=== PATIENT | female | born 1990 | race Asian ===

== ENCOUNTER 2020-05-17 09:55 | Outpatient (CLI) | payer OTHER ==
--- NOTE | 2020-05-17 12:10 | Ultrasound Report ---
PROCEDURE: OB Detailed Eval INDICATIONS: SUPERVISION OF OUTSIDE/PRIOR DATING DATA: Last menstrual period (LMP): 11/17/2019. LMP-based estimated date of delivery (MELINDA): 08/23/2020. First dating scan (date and location): 02/08/2020. Estimated date of delivery (MELINDA) from first dating scan: 09/04/2020. TECHNIQUE: Real-time scanning was performed of the fetus, with image documentation and biometric measurements. Endovaginal scanning: Performed COMPARISON: Report from 02/08/2020 ultrasound. FINDINGS: General: A single living intrauterine gestation is present. Presentation: Variable/transverse Placenta: Placental position is posterior, without previa. Amniotic fluid index: 15.9 cm, normal range 5-24 cm heart rate: 158 beats per minute. Maternal cervical canal: Closed and 4.0 cm long; normal length is 2.5 cm or more. biometrics: Biparietal diameter: 23 weeks 5 days Head circumference: 23 weeks 5 days Abdominal circumference: 24 weeks 1 day Femur length: 22 weeks 5 days Estimated gestational age from initial scan: 24 weeks 2 days. Composite gestational age from present scan: 23 weeks 4 days Estimated weight and percentile: 603 g; 14th percentile for gestational age Measurement variability in biometric dating: +/- 10 days from 12-20 weeks gestation, +/- 2 weeks from 20-30 weeks gestation, +/- 3 weeks at 30 weeks gestation or later. Anatomic survey: Neuro: Ventricles are normal at less than 10 mm. Cisterna magna is normal at 3-11 mm. Cerebellum i s normal in size and morphology. Nuchal skin fold: Normal at less than 6 mm between 14 and 20 weeks gestational age. Face: Nose and lips, facial profile are normal. Spine: No evidence for spina bifida. Heart: 4-chambered heart is present, with normal ventricular outflow tracts. Diaphragm: Diaphragm is intact. Stomach: Left-sided stomach is present. Kidneys: No hydronephrosis. Normal is less than 5 mm in 2nd trimester, less than 7 mm in 3rd trimester. Cord: 3 vessel cord has orthotopic insertion. Bladder: Normal in size. Extremities: All 4 extremities are visualized. IMPRESSION: 1. Single living intrauterine gestation with appropriate interval growth. 2. Estimated weight 603 g corresponding to the 14th percentile for gestational age. 3. Normal anatomic survey. Reviewed by: Cherelle Pacheco MD, PhD on 05/17/2020 12:09 PM PDT Approved by: Cherelle Pacheco MD, PhD on 05/17/2020 12:09 PM PDT Station ID: [id number]
== END 2020-05-17 09:56 | disposition home or self-care (01) ==
LOC: DI 09:55 → EDSEX 09:55 → DI 09:56
PROVIDERS: ATTEND Advanced Practice Midwife
DX: Z34.90 Encounter for supervision of normal pregnancy, unspecified, unspecified trimester (principal)
CPT/HCPCS: 76811

== ENCOUNTER 2020-06-17 08:41 | Outpatient (CLI) | payer OTHER ==
[2020-06-17 10:07] LABS: HGB - HEMOGLOBIN 11.5 g/dL (12.0-16.0); MEAN CORPUSCULAR HEMOGLOBIN 29.1 pg (27.0-31.0); MEAN CORPUSCULAR VOLUME 88.1 fL (81.0-99.0); MEAN PLATELET VOLUME 10.3 fL (7.9-10.8); RED BLOOD COUNT 3.95 10^6/uL (4.20-5.40); RED CELL DISTRIBUTION WIDTH 12.8 % (12.0-15.0); WHITE BLOOD COUNT 7.9 x10^3/uL (4.8-10.8)
== END 2020-06-17 08:42 | disposition home or self-care (01) ==
LOC: LAB 08:41
PROVIDERS: ATTEND Nurse Practitioner Obstetrics & Gynecology
DX: Z36.89 Encounter for other specified antenatal screening (principal)
CPT/HCPCS: 36415; 82950; 85027

== ENCOUNTER 2020-07-31 17:30 | Outpatient (CLI) | payer OTHER ==
[2020-07-31 18:36] VITALS: BP 123/86
--- NOTE | 2020-07-31 19:20 | PROVIDER PROGRESS NOTE ---
- HPI Chief Complaint: Labor Current : Current EDU 09/04/20 Gestation 35 Weeks and 0 Days 1 Para 0 Vital Signs Temperature 36.7 C 07/31/20 17:45 Heart Rate 85 07/31/20 17:45 Respiratory Rate 16 07/31/20 17:45 Blood Pressure 123/86 H 07/31/20 17:45 O2 Saturation 99 07/31/20 17:45 Temperature 36.7 C 07/31/20 17:45 Heart Rate 85 07/31/20 17:45 Respiratory Rate 16 07/31/20 17:45 Blood Pressure 123/86 H 07/31/20 17:45 O2 Saturation 99 07/31/20 17:45 - Procedures OB Procedure Performed: NST - Plan Plan: S: Ly Wray is a 30yo at 35.0 wks gestation who presents with complaints of stomach pain and cramping intermittently today. She was having pain that came and went every ten minutes, which prompted her to call. Upon arrival to L&D, she reports her pain has resolved. She has many questions about labor, concerns about delivery, and after thorough discussion reports feeling relieved about being able to go home. Denies FRIED, LOF, VB. Reports movement O: FHTs 140, moderate variability, accels, no decels Uterus soft, gravid, nontender No contractions on monitor A: 30yo at 35.0wks with concerns for labor Not in labor, no uterine activity seen Educated to s/s of when to call and return to care for labor and other emergencies P: Discharge to home Follow up 08/02 for routine appointment, or sooner PRN
== END 2020-07-31 19:06 | disposition home or self-care (01) ==
LOC: WFO 17:30 → FBP 17:31 → WFO 19:06
PROVIDERS: ATTEND Advanced Practice Midwife
DX: O99.891 Other specified diseases and conditions complicating pregnancy (principal); R10.9 Unspecified abdominal pain; Z3A.35 35 weeks gestation of pregnancy
CPT/HCPCS: 99212

== ENCOUNTER 2020-08-07 08:00 | Outpatient (CLI) | payer OTHER | END 2020-08-07 23:59 | disposition home or self-care (01) | LOC: LAB.R 08:00 | PROVIDERS: ATTEND Advanced Practice Midwife | DX: Z34.90 Encounter for supervision of normal pregnancy, unspecified, unspecified trimester (principal); Z36.85 Encounter for antenatal screening for Streptococcus B | CPT/HCPCS: 87797 ==

== ENCOUNTER 2020-08-24 03:16 | Inpatient (IN) | payer OTHER ==
[2020-08-24] MEDS ORDERED: METHYLERGONOVINE 0.2 MG/ML VIAL IM PRN (03:30)
[2020-08-24] MEDS ORDERED: LIDOCAINE-MPF 1% 30 ML VIAL ID PRN (03:30)
[2020-08-24] MEDS ORDERED: miSOPROStoL 200 MCG TABLET BC PRN (03:30)
[2020-08-24] MEDS ORDERED: CARBOPROST TROMETHAMINE 250 MCG/ML AMP IM PRN (03:30)
[2020-08-24] MEDS ORDERED: fentaNYL 100 MCG/2 ML VIAL IVP PRN (03:30)
[2020-08-24] MEDS ORDERED: TRANEXAMIC ACID 1,000 MG in SODIUM CHLORIDE 0.9% 100ML 100 ML IV PRN (03:30)
[2020-08-24] MEDS ORDERED: OXYTOCIN 10 UNIT/ML VIAL IM PRN (03:30)
[2020-08-24] MEDS ORDERED: OXYTOCIN/SODIUM CHLORIDE 500 ML IV PRN (03:30)
[2020-08-24] MEDS ORDERED: SODIUM CHLORIDE FLUSH 0.9% 10 ML SYRINGE ONE (04:15)
[2020-08-24] MEDS ORDERED: OXYTOCIN/SODIUM CHLORIDE 500 ML IV ONE (04:15)
[2020-08-24] MEDS: LACTATED RINGERS 1,000 ML IV SCH ×2 (04:35→21:44)
[2020-08-24 05:16] LABS: BASOPHILS # (AUTO) 0.1 10^3/uL (0.0-0.1); BASOPHILS % (AUTO) 0.7 %; EOSINOPHILS # (AUTO) 0.1 10^3/uL (0.0-0.7); EOSINOPHILS % (AUTO) 0.9 %; HGB - HEMOGLOBIN 10.9 g/dL (12.0-16.0); LYMPHOCYTES % (AUTO) 25.5 %; MEAN CORPUSCULAR HEMOGLOBIN 26.7 pg (27.0-31.0); MEAN CORPUSCULAR HGB CONC 32.2 g/dL (32.0-36.0); MEAN CORPUSCULAR VOLUME 82.6 fL (81.0-99.0); MEAN PLATELET VOLUME 12.7 fL (7.9-10.8); MONOCYTES # (AUTO) 0.7 10^3/uL (0.0-1.0); MONOCYTES % (AUTO) 8.1 %; NEUTROPHILS # (AUTO) 5.1 10^3/uL (1.5-6.6); NEUTROPHILS % (AUTO) 64.2 %; PLT - PLATELET COUNT 173 10^3/uL (130-450); RED BLOOD COUNT 4.09 10^6/uL (4.20-5.40); RED CELL DISTRIBUTION WIDTH 14.1 % (12.0-15.0)
[2020-08-24 05:32] LABS: ALBUMIN 2.1 g/dL (3.2-5.5); ALBUMIN/GLOBULIN RATIO 0.7 (1.0-2.2); BILIRUBIN,TOTAL 0.2 mg/dL (0.2-1.0); CALCIUM 8.1 mg/dL (8.5-10.3); TOTAL PROTEIN 5.1 g/dL (6.7-8.2)
--- NOTE | 2020-08-24 07:49 | HISTORY & PHYSICAL EXAMINATION ---
Admit History - Visit Reason Visit Reason: Membranes rupture - : 1 Parity: 0 Premature: 0 Ectopic: 0 : 0 Care: positive: [facility] Risk/History: positive: None Complications This : positive: None Smoking Status: Never smoker - Mother's Labs Mother's Blood Type: positive: A Mother's RH: positive: Positive GBS: positive: Group B Step Negative Rubella Status: positive: Immune Meds/Allgy - Allergies Allergies/Adverse Reactions: Allergies Allergy/AdvReac Type Severity Reaction Status Date / Time No Known Drug Allergies Allergy Verified 08/24/20 10:10 Review of Systems - Constitutional Constitutional: denies: Fever, Chills, Malaise - Eyes Eyes: denies: Pain, Blurred vision, Spots in vision, Dipolpia - Cardiovascular Cariovascular: denies: Chest pain, Edema - Respiratory Respiratory: denies: Cough, SOB at rest - Gastrointestinal Gastrointestinal: denies: Constipation, Diarrhea, Change in bowel habits - Integumentary Integumentary: denies: Rash, Pruritis - Neurological Neurological: denies: Headache Physical - Abdominal Exam Vital Signs: Temp Pulse Resp BP Pulse Ox 37.0 C 77 16 146/92 H 100 08/24/20 04:09 08/24/20 04:33 08/24/20 04:33 08/24/20 04:33 08/24/20 04:33 Contraction Frequency (min/apart): 2-5 Contraction Intensity: positive: Mild Uterine Resting Tone: positive: Soft - Monitoring Heart Rate Baseline: 150 Strip Review: positive: Category I - Presentation Presentation: positive: Vertex - Vaginal Exam Membranes: positive: Membranes ruptured Dilation (in cm): 3-4 Station: positive: 0 Cervical Position: positive: Midposition - Speculum Exam Speculum Exam Performed: positive: No Findings: positive: Gross leak Plan for Labor - Plan For Labor I expect patient to be DC'd or transferred within 96 hours.: Yes Plan for Labor: HPI: This 30yo @ 38.3wks gestation by 10.1wk U/S presents to [facility] on 08/24/2020 with c/o vaginal leakage of fluid which she reports was a large gush of clear fluid which has continued to leak that occurred at approximately 0200am this morning. She denies having contractions initially but states on her drive here she did begin to have contractions. She is currently breathing through contractions while bouncing on the exercise ball and is coping well. Upon arrival her BP was moderately elevated. She has had normal BPs throughout her entire . Over the past 2 weeks she has noticed an increased in lower extremity edema. She denies FRIED, visual disturbances, RUQ or epigastric pain. She reports +FM. A covid-19 swab was collected secondary to department protocol. Pt is asymptomatic and afebrile. She has been a patient of [facility] since her transfer of care from [place] at 22wks gestation. She has received adequate and consistent care through the duration of her which has remained uncomplicated. She will be admitted to [facility] for expectant management. She is accompanied by her Yoav. Dating criteria: LMP unknown Initial ultrasound @ 10.1wks dates giving MELINDA 09/04/2020 Serial Exams - agree Medications: PNV Allergies: NKDA PMHx: no significant Surgical Hx: none Social Hx: Never smoker. No ETOH or IVDA. Yoav Family Hx: HTN - mother; thyroid disorder- mother; cancer (unknown) - mother, caused ; Cancer (unknown)-MGM, caused course: Initial U/S: at 10.1wks not c/w unsure LMP for MELINDA of 09/04/2020 A pos/Rubella immune Gentic testing: Serum Int- neg FAS: 03/17/2020 Posterior placenta. STEPHANIE wnl. EFW 14%. 3VC. Glucola: 124 TDAP: 07/03/2020 influenza: 07/03/2020 GBS NEG HSV: denies self and partner Breast pump Rx provided MOD: . Desires "wait and see" approach to pain management. Yoav. pp contraception: Nexplanon PAP: 02/08/2020 wnl Physical Exam: Normocephalic, atraumatic Heart RRR w/o M/G/R Lungs CTAB Abdomen gravid, soft, nontender EFW 3200g SVE 3-4/80/0, anterior, soft. Vertex. FHR baseline 150s, moderate variability, + accels, no decels Contractions palpate mild every 2-5 minutes with soft resting tone. Grossly ruptured membranes with leakage of fluid that is clear. DTRs 2+, no clonus Bilateral LE's 2+ edema Mood is good. supportive at the bedside. Vital signs: BPs - 140s/90s with 1 BP elevated to 164/86 Labs upon admission: Hgb 10.9; Hct 33.8 PLT 173 Creatinine 1.0 AST 20 ALT 13 Protein/creatinine ratio 10.3-discussed with lab who states there appears to be a lot of contaminant in the sample floating around and they suspect this is what their machine is reading. Repeat sample ordered with straight catheterization. - repeat sample *too elevated to determine ratio with protein >2100 Assessment: 30yo @ 38.3wks gestation by 10.1wk U/S Preeclampsia without severe features SROM x 8hrs Early labor GBS negative FHR Category I Plan: Continuous monitoring Continue expectant management Continue Pitocin with titration per protocol for labor augmentation in 4 hours if SVE unchanged. Q 1 hour vital signs. Repeat labs in 24 hours or sooner PRN declining patient status. Jacuzzi PRN. Nitrous oxide PRN. Epidural per maternal request. Reviewed new onset preeclampsia diagnosis with conference coordinator physician who is in agreement with above plan. Anticipate . Reviewed plan of care with patient, , labor RN and conference coordinator physician who are all in agreement with above plan and deny further questions or concerns at this time.
[2020-08-24 10:21] LABS: CREATININE,URINE 219.4 mg/dL
[2020-08-24 10:24] LABS: TOTAL PROTEIN,URINE TIMED > 2100 mg/dL
--- NOTE | 2020-08-24 17:42 | PROVIDER PROGRESS NOTE ---
Labor Progress Note - Uterine Monitoring Uterine Monitoring Mode: positive: External toco Contraction Frequency (min/apart): 2-8 Contraction Intensity: positive: Mild to moderate Uterine Resting Tone: positive: Soft - Monitoring Monitor Mode: positive: External ultrasound Heart Rate Baseline: 150 Heart Rate Variability: positive: Moderate (6-25 bmp) Accelerations: positive: Present, 15x15 Decelerations: positive: None Strip Review: positive: Category I - Vaginal Exam Dilation (in cm): 5 Effacement (%): 80 Station: 0 - Labor Progress Note Labor Progress Note/Additional Text: S: Breathing through contractions in bed. She is feeling the contractions no longer increasing in frequency and intensity as they were initially. Reassured by some cervical change. She continues to deny FRIED, visual disturbances, RUQ or epigastric pain. Her edema remains 2+. Her mood is good. supportive at the bedside. O: BP persistently 140s/90s. On occasion, when patient is clotilde BPs reach 160/100 range, however when repeated immediately following resolution of contraction the BPs are in mildly elevated range. HR 82, T 36.4 Heart RRR w/o M/G/R, lungs CTAB, abdomen gravid, soft, nontender. Bilateral LE's 2+ pitting edema. Urine output - WNL. FHR baseline 150s, moderate variability, + accels, no decels Contractions palpate moderate every 2-8 minutes with soft resting tone SVE 2.5 hours ago 5/80/0, medium A: 30yo @ 38.3wks gestation by 10.1wk U/S Preeclampsia without severe features Early labor FHR Category I P: Intermittent monitoring while spontaneously laboring Repeat SVE in 1.5 hours and will initiate pitocin for labor augmentation if unchanged. Will initiate continuous monitoring at that time. Continue hourly BPs. Continue close monitoring of I&Os and clinical symptoms leather sponger physician notified of pt clinical status who agrees with above plan.
[2020-08-24] MEDS ORDERED: ROPIVACAINE 0.2% 200 MG/100 ML BAG EP ONE (19:47)
[2020-08-24] MEDS ORDERED: ONDANSETRON 4 MG/2 ML VIAL IVP PRN (20:21)
[2020-08-24] MEDS ORDERED: NALBUPHINE 10 MG/ML AMP IVP PRN (20:21)
[2020-08-24] MEDS ORDERED: diphenhydrAMINE INJ 50 MG/ML VIAL IVP PRN (20:21)
[2020-08-24] MEDS ORDERED: ROPIVACAINE 0.2% 200 MG/100 ML BAG EP PRN (20:21)
[2020-08-24] MEDS ORDERED: METOCLOPRAMIDE 10 MG/2 ML VIAL IVP PRN (20:21)
[2020-08-24] MEDS ORDERED: NALOXONE 0.4 MG/ML VIAL IVP PRN (20:21)
[2020-08-24] MEDS ORDERED: ePHEDrine 50 MG/ML VIAL IVP PRN (20:21)
--- NOTE | 2020-08-24 20:22 | ANESTHESIA ---
Pre-Anesthesia VS, & Labs - Diagnosis term labor, IUP - Procedure labor epidural for Vital Signs: Temp Pulse Resp BP Pulse Ox 37.0 C 77 16 146/92 H 100 08/24/20 04:09 08/24/20 04:33 08/24/20 04:33 08/24/20 04:33 08/24/20 04:33 Height: 4 ft 10 in Weight (kg): 62.142 kg Body Mass Index: 28.6 BMI Classification: Overweight - NPO Last Fluid Intake: t/o day Last Food Intake: dinner - Is Patient ?: Yes - Lab Results Current Lab Results: Laboratory Tests 08/24/20 04:20: Sodium 134 L, Potassium 3.9, Chloride 108, Carbon Dioxide 18 L, Anion Gap 8.0, BUN 16, Creatinine 1.0, Estimated GFR (MDRD) 66 L, Glucose 85, Calcium 8.1 L, Total Bilirubin 0.2, AST 20, ALT 13, Alkaline Phosphatase 133 H, Total Protein 5.1 L, Albumin 2.1 L, Globulin 3.0, Albumin/Globulin Ratio 0.7 L 08/24/20 04:20: WBC 8.0, RBC 4.09 L, Hgb 10.9 L, Hct 33.8 L, MCV 82.6, MCH 26.7 L, MCHC 32.2, RDW 14.1, Plt Count 173, MPV 12.7 H, Neut # (Auto) 5.1, Lymph # (Auto) 2.0, [place] # (Auto) 0.7, Eos # (Auto) 0.1, Baso # (Auto) 0.1, Absolute Nucleated RBC 0.00, Nucleated RBC % 0.0 08/24/20 04:20: Blood Type A POSITIVE, Antibody Screen NEGATIVE Lab results reviewed: Yes Fish Bones: 08/24/20 04:20 08/24/20 04:20 Home Medications and Allergies Active Medications Carboprost Tromethamine (Carboprost Tromethamine 250 Mcg/Ml Amp) 250 mcg IM Q15M PRN PRN Reason: Step 4: Hemorrhage protocol Fentanyl (Fentanyl 100 Mcg/2 Ml Vial) 50 mcg IVP Q1H PRN PRN Reason: PAIN Oxytocin/Sodium Chloride (Pitocin/Sodium Chloride) 500 mls @ 999 mls/hr IV PRN PRN; Protocol PRN Reason: POST- HEMORR PREVENTION Stop: 08/29/20 03:53 Tranexamic Acid 1,000 mg/ (Sodium Chloride) 110 mls @ 660 mls/hr IV .ONCE PRN PRN Reason: EBL >1200mL and within 3hr Stop: 08/29/20 03:48 Lactated Ringer's (Lr) 1,000 mls @ 150 mls/hr IV .Q6H40M [facility] Last Admin: 08/24/20 04:35 Dose: 100 mls/hr Documented by: Lidocaine HCl (Lidocaine-Mpf 1% 30 Ml Vial) 30 ml ID .ONCE PRN PRN Reason: PERINEAL REPAIR Stop: 08/29/20 03:48 Methylergonovine Maleate (Methylergonovine 0.2 Mg/Ml Vial) 0.2 mg IM .ONCE PRN PRN Reason: Step 2: Hemorrhage protocol Stop: 08/29/20 03:48 Misoprostol (Misoprostol 200 Mcg Tablet) 800 mcg BC .ONCE PRN PRN Reason: Step 3: Hemorrhage protocol Stop: 08/29/20 03:48 Oxytocin (Oxytocin 10 Unit/Ml Vial) 10 unit IM .ONCE PRN PRN Reason: Step one: If no IV access Stop: 08/29/20 03:48 Sodium Chloride (Sodium Chloride Flush 0.9% 10 Ml Syringe) 10 ml IVP PRN PRN PRN Reason: NEEDED PER PROVIDER ORDERS Sodium Chloride (Sodium Chloride Flush 0.9% 10 Ml Syringe) 10 ml IVP 0100,0900,1700 [facility] Allergies/Adverse Reactions: Allergies Allergy/AdvReac Type Severity Reaction Status Date / Time No Known Drug Allergies Allergy Verified 08/24/20 10:10 Anes History & Medical History - Anesthetic History Anesthesia Complications: reports: No previous complications Family history of Anesthesia Complications: Denies Family history of Malignant Hyperthermia: Denies - Medical History Cardiovascular: reports: Hypertension, Other (LE edema) Pulmonary: reports: None Gastrointestinal: reports: GERD Neuro: reports: Other (states she has occasional numbness in LE since edema has been present) Endocrine/Autoimmune: reports: None Blood Disorders: reports: None Smoking Status: Never smoker History of Cancer?: No - Obstetrical History : 1 Parity: 0 Events: positive: None Complications: positive: None Exam General: Alert, Oriented x3, Cooperative Dental: WNL Mouth Openin Fingerbreadth Neck Mobility: Normal Mallampati classification: II Thyromental Distance: 4-6 cm Respiratory: No respiratory distress Cardiovascular: Regular rate Neurological: Normal speech Mental/Cognitive Status: Alert/Oriented X3, Normal for patient Cognitive Status: Within normal limits Plan Anesthesia Type: Epidural Consent for Procedure(s) Verified and Reviewed: Yes Code Status: Attempt Resuscitation ASA classification: 2-Mild systemic disease Is this case an emergency?: No
[2020-08-24] MEDS: OXYTOCIN/SODIUM CHLORIDE 500 ML IV SCH (21:07)
--- NOTE | 2020-08-24 21:43 | PROVIDER PROGRESS NOTE ---
Labor Progress Note - Uterine Monitoring Uterine Monitoring Mode: positive: External toco Contraction Frequency (min/apart): 5-8 Contraction Intensity: positive: Moderate Uterine Resting Tone: positive: Soft - Monitoring Monitor Mode: positive: External ultrasound Heart Rate Baseline: 150 Heart Rate Variability: positive: Moderate (6-25 bmp) Accelerations: positive: Present, 15x15 Decelerations: positive: Early, Intermittent (<50% x20 min) Strip Review: positive: Category I - Vaginal Exam Dilation (in cm): 5 Effacement (%): 80 Station: 0 - Labor Progress Note Labor Progress Note/Additional Text: S: Feeling more comfortable in bed with her epidural. She is feeling shaky but denies feeling cold. She feels relief from pain and is hoping to be able to get a little rest. Denies FRIED, visual disturbances, RUQ or epigastric pain. Her is supportive at the bedside. O: BP 128/72, HR 70, O2 100, T 36.4 FHR baseline 150s, moderate variability, + accels, intermittent early decelerations Contractions palpate moderate every 4-8 minutes with soft resting tone SVE 5/80/0. Vertex SROM x 19 hours Pitocin for labor augmentation currently at 2mU/mL Urine output A: 30yo @ 38.3wks gestation by 10.1wk U/S Preeclampsia without severe features GBS negative P: Continue pitocin for labor augmentation with titration per protocol. Continuos monitoring Maintain adequate pain control with epidural q 1 hour BPs Closely monitor BP, urine output, and symptoms for progression of preeclampsia/deteriorating clinical status Anticipate
[2020-08-25] MEDS ORDERED: ACETAMINOPHEN 1,000 MG/100 ML 100 ML IV ONE (00:58)
[2020-08-25] MEDS ORDERED: GENTAMICIN IV SCH (02:00)
[2020-08-25] MEDS: AMPICILLIN 2 GM in SODIUM CHLORIDE 0.9% MINIBAG 100 ML IV SCH ×3 (02:00→14:16)
[2020-08-25] MEDS ORDERED: SODIUM CHLORIDE 0.9% IV SCH (02:00)
[2020-08-25] MEDS ORDERED: GENTAMICIN 80 MG/2 ML VIAL ONE ×2 (02:26→03:00)
[2020-08-25] MEDS ORDERED: HYDROCORTISONE 1% CREAM 28 GM TUBE PR PRN (03:49)
[2020-08-25] MEDS ORDERED: WITCH HAZEL/GLYCERIN 1 PAD TOP PRN (03:49)
--- NOTE | 2020-08-25 03:53 | DELIVERY NOTE ---
Delivery Note - Labor Labor: positive: Augmented by oxytocin - Delivery Method Delivery Method: positive: Spontaneous vaginal delivery - Presentation Presentation: positive: Vertex, LUZ MARINA - left occiput anterior - Nuchal Cord Nuchal Cord: positive: None - Amniotic Fluid Description Amniotic Fluid Description: positive: Clear - Episiotomy Type Episiotomy Type: positive: None - Laceration Laceration: positive: 2nd degree, Vaginal - Suture Suture Type: positive: Vicryl Suture Size: positive: 2-0 - Delivery Outcome Delivery Outcome: positive: Livebirth - [place]: positive: Placed in direct skin contact with mother, Suctioned, Bulb syringe, Stimulated, Warmed, [place] used, Warmer used [place] sex: positive: Female - Cord Cord: positive: 3 vessels - Placenta Placenta: positive: Intact, Spontaneous - Estimated Blood Loss Estimated Blood Loss (in cc): 300 - Post Delivery Events Post Delivery Events: positive: No post delivery events - Delivery Comments (Free Text/Narrative) Delivery Comments (Free Text/Narrative): Labor: This 30yo @ 38.4wks gestation by 10.1wk U/S presented to [facility] on 08/24/2020 at approximately 0300 with grossly ruptured membranes that occurred at 0200 per patient. Upon arrival pt was noted to be grossly ruptured leaking clear fluid from vagina. Cervix was 3-4/80/-1 and vertex. BPs elevated to moderate range 140s/90s persistently. Labs were drawn and diagnosis of preeclampsia without severe features was made secondary to elevated protein/creatinine ratio of 10.3. All other labs were WNL. Occasional BP elevated 160s/100s which occurred with contractions only. Epidural placed per maternal request. Pitocin was initiated for labor augmentation for a maximum infusion rate of 5 mU/mL. FHR pattern demonstrated a Category I pattern throughout labor until approximately 2356 with a baseline change in FHR to 170s. Moderate variability and +accles were maintained. Maternal tachycardia noted and maternal temperature was noted to be 100.2 and meets criteria for diagnosis of intra-amniotic infection. Pt was medication with 1000mg IV tylenol, 2g ampicill in, and 5mg/Kg Gentamycin. Maternal fever resolved. tachycardia persisted and FHR maintained Category II pattern with overall reassuring status with maintenance of moderate variability. Patient progressed to c/c/0 with spontaneous pushing effort at 0113. c d reactor operator physician notified of patient clinic status and agrees with proceeding with above plan. Total time of second stage 1hr 55min. : Normal of viable female on 08/25/2020 at 0308. No nuchal cord. Large amount of terminal meconium noted. The was placed on maternal abdomen, stimulated and dried. Umbilical cord pulsated x 1 min and doubly clamped by CNM and cut by FOB. 3VC. Cord blood was obtained. taken to infant warmer at approximately 1 min after delivery secondary to no tone and no respiratory effort. stimulated and bulb suctioned at warmer with adequate response. 's were 4/8 at 1 and 5 min respectively. Pitocin administered via IV for hemostasis. Fundal massage and gentle cord tractio napplied for active management of the third stage. Placenta delivered spontaneously and intact @ 0310. EBL 300mL. Fourth stage: Uterine fundus firm and there is no excessive bleeding. The per ineum, vagina, and cervix were inspected and found to have 2nd degree vaginal laceration which was repaired using a 2-[address]-1 needle, in standard fashion under sterile conditions. Perineum intact. Vaginal and rectal examination following repair was done. Tissues well approximated. placed skin to skin. Family bonding well. Both mother and baby were left in stable condition.
[2020-08-25] MEDS ORDERED: IBUPROFEN 800 MG TABLET PO SCH (04:00)
[2020-08-25 06:07] LABS: HGB - HEMOGLOBIN 10.9 g/dL (12.0-16.0); MEAN CORPUSCULAR HEMOGLOBIN 26.5 pg (27.0-31.0); MEAN CORPUSCULAR HGB CONC 32.5 g/dL (32.0-36.0); MEAN CORPUSCULAR VOLUME 81.3 fL (81.0-99.0); RED BLOOD COUNT 4.12 10^6/uL (4.20-5.40); RED CELL DISTRIBUTION WIDTH 14.5 % (12.0-15.0); WHITE BLOOD COUNT 19.6 x10^3/uL (4.8-10.8)
[2020-08-25 06:24] LABS: ALBUMIN 1.9 g/dL (3.2-5.5); ALBUMIN/GLOBULIN RATIO 0.7 (1.0-2.2); BILIRUBIN,TOTAL 0.3 mg/dL (0.2-1.0); CALCIUM 7.5 mg/dL (8.5-10.3); CREATININE 1.1 mg/dL (0.4-1.0); TOTAL PROTEIN 4.8 g/dL (6.7-8.2)
[2020-08-25] MEDS: DOCUSATE SODIUM 100 MG CAPSULE PO SCH (08:18)
[2020-08-25] MEDS: ACETAMINOPHEN 500 MG TABLET PO SCH ×2 (12:02→22:10)
--- NOTE | 2020-08-25 12:05 | PROVIDER PROGRESS NOTE ---
Subjective - Subjective Subjective: S: Bonding well with baby. without difficulty. Bleeding decreased and is light. Pain well controlled with tylenol when she takes it. Encouraged her to continue to take the pain medication when offered and she agrees to do so. She denies FRIED, visual disturbances, RUQ or epigastric pain. She states she was able to get some rest last night. Desires to get up to shower today. supportive at the bedside. O: BP 143/85 with intermittent BPs 160s/90s and diastolic BPs persistently >90, T 36.9, HR 78, RR 16 Labs: WBC 8.0-->19.6 Hgb 10.9-->10.9 HJct 33.8-->33.5 PLT 173-->169 AST 20-->31 ALT 13-->15 Creatinine 1.0-->1.1 Heart RRR w/o M/G/R, lungs CTAB, abdomen soft and nontender with fundus firm at U, perineum intact and repair with moderate edema, light lochia rubra, DTRs 2+, no clonus, bilateral LE's 2+ pitting edema. A: 30yo -->P1 (day of delivery) Preeclampsia without severe features Intra-amniotic infection 2nd degree perineal laceration - intact P: Continue routine pp care and medications. Continue IV antibiotics x 1 additional dosage of ampicillin, then d/c Initiate 100mg PO labetalol BID Encouraged Tylenol for pain management and ice to perineum consistently Pt verbalized understanding and agrees to above plan. She denies further questions or concerns at this time. Objective - Vital Signs/Intake & Output Vital Signs: Vital Signs x48h Temp Pulse Resp BP Pulse Ox 08/25/20 10:01 143/85 H 08/25/20 07:49 36.9 C 78 16 152/99 H 99 08/25/20 06:00 80 16 129/83 H 99 Intake & Output: Intake & Output 08/22/20 08/23/20 08/24/20 08/25/20 23:59 23:59 23:59 23:59 Intake Total 1000 100 Output Total 965 60 Balance 35 40 - Lab Results Fish Bones: 08/25/20 05:50 08/25/20 05:50 Other Labs: Lab Results x24hrs 08/25/20 08/25/20 Range/Units 05:50 05:50 WBC 19.6 H (4.8-10.8) x10^3/uL RBC 4.12 L (4.20-5.40) 10^6/uL Hgb 10.9 L (12.0-16.0) g/dL Hct 33.5 L (37.0-47.0) % MCV 81.3 (81.0-99.0) fL MCH 26.5 L (27.0-31.0) pg MCHC 32.5 (32.0-36.0) g/dL RDW 14.5 (12.0-15.0) % Plt Count 169 (130-450) 10^3/uL MPV 13.0 H (7.9-10.8) fL Sodium 133 L (135-145) mmol/L Potassium 3.6 (3.5-5.0) mmol/L Chloride 106 (101-111) mmol/L Carbon Dioxide 17 L (21-32) mmol/L Anion Gap 10.0 (6-13) BUN 20 (6-20) mg/dL Creatinine 1.1 H (0.4-1.0) mg/dL Estimated GFR (MDRD) 59 L (>89) Glucose 95 (70-100) mg/dL Calcium 7.5 L (8.5-10.3) mg/dL Total Bilirubin 0.3 (0.2-1.0) mg/dL AST 31 (10-42) IU/L ALT 15 (10-60) IU/L Alkaline Phosphatase 120 (42-121) IU/L Total Protein 4.8 L (6.7-8.2) g/dL Albumin 1.9 L (3.2-5.5) g/dL Globulin 2.9 (2.1-4.2) g/dL Albumin/Globulin Ratio 0.7 L (1.0-2.2)
[2020-08-25] MEDS ORDERED: LABETALOL 100 MG TABLET PO SCH (12:07)
[2020-08-25 18:30] LABS: BASOPHILS # (AUTO) 0.1 10^3/uL (0.0-0.1); BASOPHILS % (AUTO) 0.4 %; EOSINOPHILS # (AUTO) 0.1 10^3/uL (0.0-0.7); EOSINOPHILS % (AUTO) 0.3 %; HGB - HEMOGLOBIN 10.2 g/dL (12.0-16.0); LYMPHOCYTES # (AUTO) 2.1 10^3/uL (1.5-3.5); LYMPHOCYTES % (AUTO) 12.6 %; MEAN CORPUSCULAR HEMOGLOBIN 26.5 pg (27.0-31.0); MEAN CORPUSCULAR HGB CONC 32.3 g/dL (32.0-36.0); MEAN CORPUSCULAR VOLUME 82.1 fL (81.0-99.0); MONOCYTES # (AUTO) 0.8 10^3/uL (0.0-1.0); MONOCYTES % (AUTO) 4.8 %; NEUTROPHILS # (AUTO) 13.6 10^3/uL (1.5-6.6); NEUTROPHILS % (AUTO) 81.5 %; PLT - PLATELET COUNT 156 10^3/uL (130-450); RED BLOOD COUNT 3.85 10^6/uL (4.20-5.40); RED CELL DISTRIBUTION WIDTH 14.6 % (12.0-15.0); WHITE BLOOD COUNT 16.7 x10^3/uL (4.8-10.8)
[2020-08-25 18:40] LABS: ALBUMIN 1.9 g/dL (3.2-5.5); ALBUMIN/GLOBULIN RATIO 0.7 (1.0-2.2); BILIRUBIN,TOTAL 0.2 mg/dL (0.2-1.0); CALCIUM 8.2 mg/dL (8.5-10.3); CREATININE 1.3 mg/dL (0.4-1.0); TOTAL PROTEIN 4.7 g/dL (6.7-8.2)
--- NOTE | 2020-08-25 20:21 | PROVIDER PROGRESS NOTE ---
Subjective - Subjective Subjective: S; Pt denies FRIED, visual disturbances, RUQ or epigastric pain. Her edema has increased to above her knee and remains 2+ pitting. She states the swelling does not seem to be much worse than it was upon arrival. She reports urinating without difficulty. She states she felt she had not remembered to get up to go to the bathroom earlier but has been intentionally drinking more water and has been having better urine output. Her is supportive at the bedside. O: BP 152-138/99-85; s/p 1 dose of 100mg labetalol PO T 36.6; HR 76, RR 16 Labs: Hgb 10.9-->10.2 Hct 33.8-->31.6 PLT 173-->169-->156 *Creatinine 1.0-->1.1-->1.3 GFR 66-->59-->49 AST 20-->31-->39 ALT 13-->15-->18 Heart RRR w/o M/G/R, lungs CTAB, abdomen soft and nontender with fundus firm at U-1. Light lochia rubra. Urine output at 1400 was 650mL and 1800 650mL however the color was dark brown. She just had a large urine output which was clear. Bilateral LE's 2+ pitting edema to knees. DTRs 2+, no clonus A: 30yo -->P1 s/p on 08/25/2020 @ 0308 Preeclampsia which has progressed to severe features as evidenced by elevated creatinine and decreased GFR Intra-amniotic infection - s/p IV Ampicillin and Gentamycin with no elevated temperatures in the period 2nd degree perineal laceration intact P: Phoned automotive collision estimator physician Dr. Cook to update on patient's clinical status and confirm diagnosis of worsening preeclampsia. Care handed to physician for further management. Reviewed plan of care and options for management with patient to include initiating magnesium for seizure prophylaxis at this time vs repeating labs in 4-6 hours to evaluate for improvement knowing with little or no improvement magnesium would be initiated at that time. Discussed risk of delaying initiation of magnesium to be seizure and pt and both wish to proceed with initiation of magnesium at this time. Will continue to socially round and support patient and family. Objective - Vital Signs/Intake & Output Vital Signs: Vital Signs x48h Temp Pulse Resp BP Pulse Ox 08/25/20 18:19 143/85 H 08/25/20 16:30 36.6 C 76 16 142/97 H 100 08/25/20 12:11 36.8 C 87 15 138/87 H 100 Intake & Output: Intake & Output 08/22/20 08/23/20 08/24/20 08/25/20 23:59 23:59 23:59 23:59 Intake Total 1000 650 Output Total 965 710 Balance 35 -60 - Lab Results Fish Bones: 08/25/20 18:21 08/25/20 18:21 Other Labs: Lab Results x24hrs 08/25/20 08/25/20 08/25/20 Range/Units 18:21 18:21 05:50 WBC 16.7 H (4.8-10.8) x10^3/uL RBC 3.85 L (4.20-5.40) 10^6/uL Hgb 10.2 L (12.0-16.0) g/dL Hct 31.6 L (37.0-47.0) % MCV 82.1 (81.0-99.0) fL MCH 26.5 L (27.0-31.0) pg MCHC 32.3 (32.0-36.0) g/dL RDW 14.6 (12.0-15.0) % Plt Count 156 (130-450) 10^3/uL MPV 12.0 H (7.9-10.8) fL Neut # (Auto) 13.6 H (1.5-6.6) 10^3/uL Lymph # (Auto) 2.1 (1.5-3.5) 10^3/uL [place] # (Auto) 0.8 (0.0-1.0) 10^3/uL Eos # (Auto) 0.1 (0.0-0.7) 10^3/uL Baso # (Auto) 0.1 (0.0-0.1) 10^3/uL Absolute Nucleated RBC 0.00 x10^3/uL Nucleated RBC % 0.0 /100WBC Sodium 136 133 L (135-145) mmol/L Potassium 3.7 3.6 (3.5-5.0) mmol/L Chloride 108 106 (101-111) mmol/L Carbon Dioxide 19 L 17 L (21-32) mmol/L Anion Gap 9.0 10.0 (6-13) BUN 20 20 (6-20) mg/dL Creatinine 1.3 H 1.1 H (0.4-1.0) mg/dL Estimated GFR (MDRD) 49 L 59 L (>89) Glucose 131 H 95 (70-100) mg/dL Calcium 8.2 L 7.5 L (8.5-10.3) mg/dL Total Bilirubin 0.2 0.3 (0.2-1.0) mg/dL AST 39 31 (10-42) IU/L ALT 18 15 (10-60) IU/L Alkaline Phosphatase 107 120 (42-121) IU/L Total Protein 4.7 L 4.8 L (6.7-8.2) g/dL Albumin 1.9 L 1.9 L (3.2-5.5) g/dL Globulin 2.8 2.9 (2.1-4.2) g/dL Albumin/Globulin Ratio 0.7 L 0.7 L (1.0-2.2) Coronavirus (PCR) 08/25/20 08/24/20 Range/Units 05:50 08:00 WBC 19.6 H (4.8-10.8) x10^3/uL RBC 4.12 L (4.20-5.40) 10^6/uL Hgb 10.9 L (12.0-16.0) g/dL Hct 33.5 L (37.0-47.0) % MCV 81.3 (81.0-99.0) fL MCH 26.5 L (27.0-31.0) pg MCHC 32.5 (32.0-36.0) g/dL RDW 14.5 (12.0-15.0) % Plt Count 169 (130-450) 10^3/uL MPV 13.0 H (7.9-10.8) fL Neut # (Auto) (1.5-6.6) 10^3/uL Lymph # (Auto) (1.5-3.5) 10^3/uL [place] # (Auto) (0.0-1.0) 10^3/uL Eos # (Auto) (0.0-0.7) 10^3/uL Baso # (Auto) (0.0-0.1) 10^3/uL Absolute Nucleated RBC x10^3/uL Nucleated RBC % /100WBC Sodium (135-145) mmol/L Potassium (3.5-5.0) mmol/L Chloride (101-111) mmol/L Carbon Dioxide (21-32) mmol/L Anion Gap (6-13) BUN (6-20) mg/dL Creatinine (0.4-1.0) mg/dL Estimated GFR (MDRD) (>89) Glucose (70-100) mg/dL Calcium (8.5-10.3) mg/dL Total Bilirubin (0.2-1.0) mg/dL AST (10-42) IU/L ALT (10-60) IU/L Alkaline Phosphatase (42-121) IU/L Total Protein (6.7-8.2) g/dL Albumin (3.2-5.5) g/dL Globulin (2.1-4.2) g/dL Albumin/Globulin Ratio (1.0-2.2) Coronavirus (PCR) NEGATIVE
[2020-08-25] MEDS ORDERED: LABETALOL 20 MG/4 ML SYRINGE IVP ONE (21:02)
[2020-08-25] MEDS ORDERED: MAGNESIUM SULFATE IV ONE (21:33)
[2020-08-25] MEDS ORDERED: MAGNESIUM SULFATE IN WATER 20 GM/500 ML IV.SOLN IV SCH (22:00)
[2020-08-25] MEDS ORDERED: LACTATED RINGERS 1,000 ML IV SCH (22:00)
[2020-08-25] MEDS: SODIUM CHLORIDE FLUSH 0.9% 10 ML SYRINGE IVP SCH (22:02)
--- NOTE | 2020-08-26 00:14 | CONSULTATION NOTE ---
Referring Provider Consult Date: 08/25/20 History of Present Illness - History of Present Illness HPI Comment/Other: Transfer of care from [facility] due to severe preeclampsia. HPI: This 30yo G1 now P1 is PPD#0 s/p augmented vaginal delivery at term. Was admitted with SROM. At home, had had an increase in edema. In labor, developed mild-range BP. Had a few severe range BP but those were associated with pain. Preeclampsia labs were normal except for an [id number] P:C ratio. Received an epidural. Developed chorioamnionitis shortly prior to delivery which was treat ed with ampicillin and gentamycin. Had a 2nd degree laceration that was repaired. EBL was 300cc. Had an otherwise uncomplicated vaginal delivery. Then developed occasional severe range BP that required labetalol. Creatinine thee to 1.3. At that point she was diagnosed with severe pr eeclampsia and begun on Magnesium for seizure prophylaxis. She has never had FRIED, visual changes, or upper abdominal pain. Her swelling worsened post delivery including 3+ pitting to knee with some tightness in the thigh. This has improved with steep elevation of her legs. Has been able to ambulate while on the magnesium. PMH: neg Medications: PNV Allergies: NKDA Surgical Hx: none Social Hx: Never smoker. No ETOH or IVDA. Yoav Family Hx: HTN - mother; thyroid disorder- mother; cancer (unknown) - mother, caused ; Cancer (unknown)-MGM, caused course: Initial U/S: at 10.1wks not c/w unsure LMP for MELINDA of 09/04/2020 A pos/Rubella immune Gentic testing: Serum Int- neg FAS: 03/17/2020 Posterior placenta. STEPHANIE wnl. EFW 14%. 3VC. Glucola: 124 TDAP: 07/03/2020 influenza: 07/03/2020 GBS NEG HSV: denies self and partner Breast pump Rx provided MOD: . Desires "wait and see" approach to pain management. Yoav. pp contraception: Nexplanon PAP: 02/08/2020 wnl O: currently mild-range BP; AVSS Sleepy but easy to rouse, smiles, NAD Lungs CTA bilat Abd soft, nt/nd No upper abd tenderness LE with 2+ edema to knee 2+DTR Cr 1.3. Normal AST, ALT, plts. Hct 31 UOP about 700cc over the past 4h A/P: 30yo P1 PPD#1 s/p spontaneous vaginal delivery at term complicated by severe preeclampsia. BPs had been borderline prior to delivery and worsened post delivery. Labs have been normal except for Cr increasing post delivery. Edema has been prominent and is improving with elevation. UOP was low immediately post delivery but pt is now voiding well--about 700cc/4h last time--but patient flushed instead of saving the void for eval. Has never had symptoms. Will continue magnesium for seizure prophylaxis for 24h. Repeat labs tomorrow late afternoon. Watch for any signs of worsening condition. Had chorio and currently is afebrile and not tachycardic. Watch for any signs of endomyometritis. Otherwise is doing well and anticipate routine care. MD will assume medical care and CNM will follow socially. History - Past Medical History Cardiovascular: reports: Hypertension, Other (LE edema) Respiratory: reports: None Neuro: reports: Other (states she has occasional numbness in LE since edema has been present) Endocrine/Autoimmune: reports: None GI: reports: GERD Meds/Allgy - Allergies Allergies/Adverse Reactions: Allergies Allergy/AdvReac Type Severity Reaction Status Date / Time No Known Drug Allergies Allergy Verified 08/24/20 10:10 Exam - Vital Signs Vital Signs: Vital Signs x48h Temp Pulse Resp BP Pulse Ox 08/25/20 20:30 72 18 162/93 H 100 08/25/20 18:19 143/85 H 08/25/20 16:30 97.9 F 76 16 142/97 H 100 Conclusion/Plan - Lab Results Lab results reviewed: Yes Fish Bones: 08/25/20 18:21 08/25/20 18:21
[2020-08-26] MEDS ORDERED: oxyCODONE 5 MG TABLET PO PRN (00:28)
[2020-08-26] MEDS: LABETALOL 20 MG/4 ML SYRINGE IVP PRN ×3 (02:15→05:51)
[2020-08-26] MEDS: SODIUM CHLORIDE FLUSH 0.9% 10 ML SYRINGE IVP SCH ×6 (05:54→12:21)
[2020-08-26] MEDS: SODIUM CHLORIDE FLUSH 0.9% 10 ML SYRINGE IVP PRN ×2 (05:54→06:29)
[2020-08-26] MEDS: LABETALOL 100 MG TABLET PO SCH ×2 (06:04→10:11)
[2020-08-26] MEDS ORDERED: LABETALOL 20 MG/4 ML SYRINGE IVP ONE ×2 (06:18→08:12)
[2020-08-26] MEDS: MAGNESIUM SULFATE IN WATER 20 GM/500 ML IV.SOLN IV SCH (08:27)
[2020-08-26] MEDS: DOCUSATE SODIUM 100 MG CAPSULE PO SCH ×3 (08:33→23:13)
[2020-08-26] MEDS: ACETAMINOPHEN 500 MG TABLET PO SCH ×3 (08:42→19:11)
[2020-08-26] MEDS ORDERED: NIFEdipine ER 30 MG TABLET PO SCH (09:00)
[2020-08-26] MEDS: AMPICILLIN 2 GM in SODIUM CHLORIDE 0.9% MINIBAG 100 ML IV SCH ×2 (09:01→10:10)
[2020-08-26] MEDS: OXYTOCIN/SODIUM CHLORIDE 500 ML IV SCH (09:01)
--- NOTE | 2020-08-26 10:34 | PROVIDER PROGRESS NOTE ---
Subjective - Subjective Subjective: Feeling exhausted. Wants to breastfeed but also wants to take a break. eating, ambuliating, urinating well. No heavy bleeding. No FRIED, visual changes, or upper abd pain. VS labile, BP mild to severe range Sleepy but easy to rouse, NAD Lungs CTA bilat Abd soft, nt/nd Fundus firm, NT, 1cm below U LE edema improved; 1+ DTR 3+ A/P: 30yo P1 PPD#1 s/p at term complicated by chorio (no current signs of infection) and severe preeclampsia. No symptoms. DTR are brisk and UOP is about 100cc/hour so will increase mag from 1.5g to 2g maintenance. Recheck labs this afternoon--especially Cr that was elevated yesterday. Anticipate mag off after 24h. BPs labile, have been using labetalol IV PRN and po was increased to 200mg po bid. Will add nifedipine. Goal to keep BP in mild range. Overall doing very well except for labile but controllable BPs. Objective - Vital Signs/Intake & Output Vital Signs: Vital Signs x48h Temp Pulse Resp BP Pulse Ox 08/26/20 10:03 79 16 147/98 H 99 08/26/20 09:00 140/95 H 08/26/20 08:54 136/93 H 08/26/20 08:15 147/101 H 08/26/20 08:04 97.7 F 88 16 155/105 H 98 Intake & Output: Intake & Output 08/23/20 08/24/20 08/25/20 08/26/20 23:59 23:59 23:59 23:59 Intake Total 1000 542 542.7039 Output Total 965 1400 4250 Balance 93 -352 -9392.6295 - Lab Results Fish Bones: 08/25/20 18:21 08/25/20 18:21 Other Labs: Lab Results x24hrs 08/25/20 08/25/20 08/24/20 Range/Units 18:21 18:21 08:00 WBC 16.7 H (4.8-10.8) x10^3/uL RBC 3.85 L (4.20-5.40) 10^6/uL Hgb 10.2 L (12.0-16.0) g/dL Hct 31.6 L (37.0-47.0) % MCV 82.1 (81.0-99.0) fL MCH 26.5 L (27.0-31.0) pg MCHC 32.3 (32.0-36.0) g/dL RDW 14.6 (12.0-15.0) % Plt Count 156 (130-450) 10^3/uL MPV 12.0 H (7.9-10.8) fL Neut # (Auto) 13.6 H (1.5-6.6) 10^3/uL Lymph # (Auto) 2.1 (1.5-3.5) 10^3/uL [place] # (Auto) 0.8 (0.0-1.0) 10^3/uL Eos # (Auto) 0.1 (0.0-0.7) 10^3/uL Baso # (Auto) 0.1 (0.0-0.1) 10^3/uL Absolute Nucleated RBC 0.00 x10^3/uL Nucleated RBC % 0.0 /100WBC Sodium 136 (135-145) mmol/L Potassium 3.7 (3.5-5.0) mmol/L Chloride 108 (101-111) mmol/L Carbon Dioxide 19 L (21-32) mmol/L Anion Gap 9.0 (6-13) BUN 20 (6-20) mg/dL Creatinine 1.3 H (0.4-1.0) mg/dL Estimated GFR (MDRD) 49 L (>89) Glucose 131 H (70-100) mg/dL Calcium 8.2 L (8.5-10.3) mg/dL Total Bilirubin 0.2 (0.2-1.0) mg/dL AST 39 (10-42) IU/L ALT 18 (10-60) IU/L Alkaline Phosphatase 107 (42-121) IU/L Total Protein 4.7 L (6.7-8.2) g/dL Albumin 1.9 L (3.2-5.5) g/dL Globulin 2.8 (2.1-4.2) g/dL Albumin/Globulin Ratio 0.7 L (1.0-2.2) Coronavirus (PCR) NEGATIVE
[2020-08-26 15:19] LABS: BASOPHILS # (AUTO) 0.1 10^3/uL (0.0-0.1); BASOPHILS % (AUTO) 0.4 %; EOSINOPHILS # (AUTO) 0.1 10^3/uL (0.0-0.7); EOSINOPHILS % (AUTO) 0.9 %; HGB - HEMOGLOBIN 11.2 g/dL (12.0-16.0); LYMPHOCYTES # (AUTO) 1.7 10^3/uL (1.5-3.5); LYMPHOCYTES % (AUTO) 11.7 %; MEAN CORPUSCULAR HEMOGLOBIN 26.6 pg (27.0-31.0); MEAN CORPUSCULAR HGB CONC 32.5 g/dL (32.0-36.0); MEAN CORPUSCULAR VOLUME 81.9 fL (81.0-99.0); MEAN PLATELET VOLUME 11.6 fL (7.9-10.8); MONOCYTES # (AUTO) 0.5 10^3/uL (0.0-1.0); MONOCYTES % (AUTO) 3.5 %; NEUTROPHILS # (AUTO) 12.2 10^3/uL (1.5-6.6); NEUTROPHILS % (AUTO) 82.8 %; PLT - PLATELET COUNT 218 10^3/uL (130-450); RED BLOOD COUNT 4.21 10^6/uL (4.20-5.40); RED CELL DISTRIBUTION WIDTH 14.8 % (12.0-15.0); WHITE BLOOD COUNT 14.8 x10^3/uL (4.8-10.8)
[2020-08-26 15:21] LABS: ALBUMIN 1.9 g/dL (3.2-5.5); ALBUMIN/GLOBULIN RATIO 0.6 (1.0-2.2); BILIRUBIN,TOTAL 0.3 mg/dL (0.2-1.0); CALCIUM 7.7 mg/dL (8.5-10.3); CREATININE 0.9 mg/dL (0.4-1.0); TOTAL PROTEIN 5.3 g/dL (6.7-8.2)
[2020-08-26] MEDS ORDERED: LABETALOL 100 MG TABLET PO SCH (21:00)
[2020-08-27] MEDS: LABETALOL 20 MG/4 ML SYRINGE IVP PRN (01:19)
[2020-08-27] MEDS ORDERED: NIFEdipine 10 MG CAPSULE PO ONE (02:55)
[2020-08-27] MEDS: AMPICILLIN 2 GM in SODIUM CHLORIDE 0.9% MINIBAG 100 ML IV SCH ×4 (08:22→12:20)
[2020-08-27] MEDS: MAGNESIUM SULFATE IN WATER 20 GM/500 ML IV.SOLN IV SCH ×2 (08:23→12:19)
[2020-08-27] MEDS ORDERED: NIFEdipine ER 30 MG TABLET PO SCH (09:00)
[2020-08-27] MEDS: DOCUSATE SODIUM 100 MG CAPSULE PO SCH (09:12)
[2020-08-27] MEDS: SODIUM CHLORIDE FLUSH 0.9% 10 ML SYRINGE IVP SCH ×3 (09:13→12:20)
[2020-08-27 12:03] VITALS: BP 147/98
[2020-08-27] MEDS: OXYTOCIN/SODIUM CHLORIDE 500 ML IV SCH (12:16)
--- NOTE | 2020-08-27 14:23 | Discharge Plan ---
Discharge Plan Problem Reviewed?: Yes Disposition: Home, Self Care Condition: Good Diet: Regular Activity Restrictions: No Restrictions Shower Restrictions: No Driving Restrictions: No Additional Instructions or Follow Up instructions: Overall, your blood pressures will gradually drop with time. For the first few days, we may need to use as-needed blood pressure medication if you have elevated ones. So.... 1) Take nifedipine XL 15mg, 3 tablets (45mg total) daily. 2) Check your blood pressure 3x per day. --If you have a blood pressure that is over 160 for the top number or over 105 for the bottom number, then take 100mg of labetalol and call me. (Call the clinic to get to the answering service and then say you are a patient of Dr. Cook's). --If you have a blood pressure that is over 170 for the top number or over 110 for the bottom number, then take 200mg of labetalol and come to OB triage. 3) When your blood pressures are consistently becoming normal then we will start to decrease your daily nifedipine. --If your blood pressures are consistently around or below 120/75, then drop your nifedipine dose by 15mg. So first drop from 45 to 30mg, then from 30mg to 15mg, then from 15mg to no nifedipine. --If your blood pressure is under 110/60 then drink 32oz of water and call me. No Smoking: If you smoke, Please STOP! Call for help. Follow-up with: Diana Alejandre CNM, RAJESH [Provider Admit Priv/Credential] - 1 Week (1w)
--- NOTE | 2020-08-27 15:55 | DISCHARGE SUMMARY ---
Physician: Hansa Cook MD DATE OF ADMISSION: 08/24/2020 DATE OF DISCHARGE: 08/27/2020 ADMISSION DIAGNOSIS: Spontaneous rupture of membranes at term. DISCHARGE DIAGNOSES 1. Status post spontaneous vaginal delivery at term. 2. Severe preeclampsia. 3. Chorioamnionitis. PROCEDURE: 08/25/2020, spontaneous vaginal of a liveborn female, uncomplicated. HOSPITAL COURSE: The patient was admitted with spontaneous rupture of membranes at term, and she req uired Pitocin augmentation for delivery. During her labor, she was found to have multiple elevated b lood pressures including some to the severe range. These blood pressures in the severe range were as sociated with ambulation and also contraction pain. She had normal preeclampsia labs. Her protein-t o-creatinine ratio was quite high at 10, but it was also contaminated by her amniotic fluid. She was never symptomatic with any headache, visual changes or upper abdominal pain. She received an epidur al for pain control, and then developed chorioamnionitis shortly before delivery, which was treated w ith ampicillin and gentamicin. She had a second-degree laceration with her delivery. Estimated bloo d loss was 300 mL. Patient developed severe range blood pressures that required treatment with labetalol. He r creatinine also increased to 1.3 and so she was diagnosed with severe preeclampsia and treated with 24 hours of magnesium sulfate prophylaxis. Her repeat labs were normal with resolution of her eleva hansel creatinine. Again, she never became symptomatic with her preeclampsia. She did require chronic blood pressure medication in order to maintain her blood pressures in the [id number] range. At t he time of discharge, she was on nifedipine 60 mg XL daily. She will be sent home with decision tree of what to do for blood pressures. She will start with 60 mg of nifedipine daily and take labetalol p.r.n. elevated blood pressures to the severe range and will call me. As her blood pressures droppe d to the 120s over 70s, she can start to wean off of her nifedipine. Preeclampsia precautions were em phasized and the severity of complications were reviewed. The patient has promised to come back p.r. n. difficulty. Otherwise, her course was uncomplicated. She was eating, ambulating, urinating, and latch ing without difficulties. Her pain was under good control and her mood was good. Her vital signs we re stable with the exception of her blood pressure. She is alert and smiling, in no apparent distres s. Abdomen is soft, nontender, nondistended. Fundus firm, nontender, and at the umbilicus. There w as 1+ lower extremity edema to the lower third of her leg. DTRs are 2+. DISPOSITION: Home. CONDITION: Good. FOLLOWUP: In 1 week with sales promotion directorPili. PRECAUTIONS: Routine preeclampsia and precautions given. MEDICATIONS 1. Nifedipine. 2. Labetalol. 3. Ibuprofen. TD: 08/27/2020 14:40
--- NOTE | 2020-08-27 16:05 | Labor Flowsheet ---
Labor Flowsheet Datetime Report Generated by CPN: 08/27/2020 16:05 Datetime: 08/26/2020 07:31 VITAL SIGNS NBP Sys/Lesa/Mean (mmHg): 141 : 95 : 104 Pulse: 79 Datetime: 08/25/2020 23:00 SpO2 (%): 99 Datetime: 08/25/2020 05:08 Stage of : Datetime: 08/25/2020 05:01 PAIN Pain Scale: 0 Datetime: 08/25/2020 03:27 Stage 2 Comments: repair of laceration in progress Datetime: 08/25/2020 03:21 Anesthesia Comments: pump stopped Datetime: 08/25/2020 03:16 Temperature (C): 36.8 Temperature Route: Oral Datetime: 08/25/2020 03:05 ASSESSMENT A Monitor Mode: External US FHR Baseline Rate : 155 Variability: Moderate 6-25 bpm Accelerations: 15X15 Datetime: 08/25/2020 03:00 UTERINE ACTIVITY Monitor Mode: External Frequency (min): 1-3 Quality: Strong Duration (sec): 50 Pattern: Normal: <= 5 Contractions in 10 Minutes Resting Tone (Palpate): Relaxed Decelerations: Variable (Annotations: mild variable; beginning to crown with pushes) Pushing Progress: with Pushing Datetime: 08/25/2020 02:55 LaborFlag: Labor Datetime: 08/25/2020 02:46 MEDICATIONS Pitocin (milliunits): Increased to @ 5 Datetime: 08/25/2020 02:30 Communication Comments: A. Pili, CNM remains at bedside pushing with pt Datetime: 08/25/2020 02:15 Anesthesia Level Check: T11 (Annotations: pushing well but feeling intense pressure) Datetime: 08/25/2020 02:00 Antibiotics: Ampicillin IV 2 Gm Datetime: 08/25/2020 01:50 Monitor Interventions for FHR: Ultrasound Adjusted Actions for Decelerations: pushing in L tilt position Datetime: 08/25/2020 01:40 Category: Category II Comments: accels to200 Pushing Position: Pushing Left Side Datetime: 08/25/2020 01:30 I/O Interventions: Gao Discontinued Patient Care Comments: emptied of 60 ml spenser urine Datetime: 08/25/2020 01:18 Analgesics/Sedatives: Tylenol (mg) @ 1000mg IV STAGE 2 Pushing: Coached on Pushing Datetime: 08/25/2020 01:15 VAGINAL EXAM Dilatation (cm): 10.0 Exam by: A. Pili, CNM Vaginal Exam Comments: pushing started ANESTHESIA Anesthesia Plans: Epidural Datetime: 08/25/2020 01:12 COMMUNICATION Communication: Provider at Bedside Datetime: 08/25/2020 00:16 Pain Presence: Intermittent Pain Type: Pressure Effacement (%): 90 Station: 1 Cervix, Position: Midposition MATERNAL ASSESSMENT Level of Consciousness: Alert Headache: Denies Nausea/Vomiting: Denies RUQ Epigastric Pain: Denies Hygiene: Underpad Changed Datetime: 08/25/2020 00:03 Patient Position/Activity: Left Tilt; High Fowlers Datetime: 08/24/2020 23:17 Monitor Interventions for UA: [place] Adjusted Datetime: 08/24/2020 22:07 Membranes Ruptured Date/Time: 08/24/2020 02:00 Datetime: 08/24/2020 21:44 Pain Coping: Sleeping PATIENT CARE IV/Blood Work: New IV Bag Hung; IV Bag Number @ 3 Datetime: 08/24/2020 20:52 Pain Location: Abdomen; Back Vaginal Bleeding: None Datetime: 08/24/2020 20:29 Pain Assessment Comments: Pt denies pain with ctx compared to before epidural. States she can still feel pressure with ctx. Pt able to rest during ctx. Datetime: 08/24/2020 20:16 Epidural Procedure: Completed Epidural Procedure Other: Pump Started Datetime: 08/24/2020 20:06 Epidural Positioning: Sitting Datetime: 08/24/2020 19:35 PROCEDURE TIME OUT Procedure Verify: Correct Patient Identity; Agreement on Procedure to be Done Datetime: 08/24/2020 19:02 FHR Baseline Changes: No Baseline Change Datetime: 08/24/2020 18:40 Vital Sign Comments: pt. clotilde Datetime: 08/24/2020 18:35 Medication Comments: nitros started and usage explained. Pt. verbalized understanding. Datetime: 08/24/2020 18:27 Pain Goal: 6 Datetime: 08/24/2020 15:27 Comfort Measures: Breathing/Relaxation; Family Support Datetime: 08/24/2020 15:18 Cervix, Consistency: Soft Datetime: 08/24/2020 13:30 Contraction Comments: ctx palpating q2-5, strong. pt. breathing through contractions. pt. states th at she would like to get some rest. Datetime: 08/24/2020 11:34 Pain Relief Measures: Comfort Measures Datetime: 08/24/2020 07:17 Breath Sounds, Left: Clear and Equal Breath Sounds, Right: Clear and Equal Datetime: 08/24/2020 06:31 Amniotic Fluid Color: Clear Datetime: 08/24/2020 05:30 DTR's/Clonus: DTRs 3+ Datetime: 08/24/2020 04:02 Provider Reviewed Strip: No Notification Reason: Status Update; Status; Labor Status; Maternal Vital Sign Change
== END 2020-08-27 15:45 | disposition home or self-care (01) | DRG 805 ==
LOC: FBP 03:16 → WFO 03:16 → FBP 03:18 → WFO 03:47 → FBP 03:48 → OBS 08-26 08:08
PROVIDERS: ADMIT Nurse Practitioner Obstetrics & Gynecology; ATTEND Obstetrics & Gynecology
PROC: 10E0XZZ Delivery of Products of Conception, External Approach (ICD-10-PCS; principal; 2020-08-25)
PROC: 0KQM0ZZ Repair Perineum Muscle, Open Approach (ICD-10-PCS; 2020-08-25)
DX: O14.14 Severe pre-eclampsia complicating childbirth (principal); O41.1230 Chorioamnionitis, third trimester, not applicable or unspecified; Z37.0 Single live birth; O71.4 Obstetric high vaginal laceration alone; Z3A.38 38 weeks gestation of pregnancy; Z20.828 Contact with and (suspected) exposure to other viral communicable diseases
CPT/HCPCS: 36415; 80053; 82570; 84156; 85025; 85027; 86850; 86900; 86901; 87635; A9270; J0131; J1580; J7120; J3475

== ENCOUNTER 2020-09-23 08:00 | Outpatient (CLI) | payer OTHER ==
[2020-09-24 20:59] LABS: CANDIDA GROUP DNA NEGATIVE (NEGATIVE); CANDIDA KRUSEI DNA NEGATIVE (NEGATIVE); TRICHOMONAS VAGINALIS DNA NEGATIVE (NEGATIVE)
== END 2020-09-23 23:59 | disposition home or self-care (01) ==
LOC: LAB.R 08:00
PROVIDERS: ATTEND Advanced Practice Midwife
DX: Z39.1 Encounter for care and examination of lactating mother (principal); N89.8 Other specified noninflammatory disorders of vagina
CPT/HCPCS: 87661; 87801